=== PATIENT | female | born 1970 | race Caucasian/White ===

== ENCOUNTER 2022-03-06 13:00 | Emergency (ER) | payer OTHER ==
[2022-03-06] MEDS ORDERED: Benzocaine 20% Topical Spray UD MUCMEM ONE (14:16)
[2022-03-06] MEDS ORDERED: Lidocaine 2% Viscous Solution 15 ML UD PO ONE (14:16)
== END 2022-03-06 14:41 | disposition home or self-care (01) ==
LOC: MW.ED 13:00
DX: K04.7 Periapical abscess without sinus (principal)
CPT/HCPCS: 99282; A9270; 99283